=== PATIENT | male | born 1990 | race Caucasian/White ===

== ENCOUNTER 2019-08-27 00:36 | Emergency (ER) | payer SELFPAY ==
--- NOTE | 2019-08-27 01:00 | NUR ---
PT CALLED IN LOBBY AND OUTSIDE WITH NO ANSWER.
--- NOTE | 2019-08-27 01:10 | NUR ---
PT CALLED IN LOBBY AND OUTSIDE WITH NO ANSWER. PATIENT LEFT WITHOUT BEING SEEN BY DR. MAC. NO FURTHER CARE PROVIDED FOR PATIENT.
== END 2019-08-27 01:10 | disposition left against medical advice (07) ==
LOC: MED 00:36
DX: H57.13 Ocular pain, bilateral (principal); Z53.21 Procedure and treatment not carried out due to patient leaving prior to being seen by health care provider